=== PATIENT | male | born 1990 | race Caucasian/White ===

== ENCOUNTER 2019-12-15 14:33 | Emergency (ER) | payer OTHER, SELFPAY ==
[2019-12-15 14:42] VITALS: BP 143/68; PULSE 60; RESP 14; TEMP 36.8; O2SAT 99; BMI 23.6
[2019-12-15 15:09] VITALS: BP 135/73
[2019-12-15 15:17] LABS: Add Manual Diff / Slide Review NO; Basophils Absolute Auto 100 /uL (0-100); Basophils Percent Auto 0.7 % (0-2); Eosinophils Absolute Auto 100 /uL (0-450); Eosinophils Percent Auto 1.2 % (2-4); Hematocrit 45.7 % (41-53); Hemoglobin 15.5 g/dL (13.5-17.5); Lymphocytes Absolute Auto 2700 /uL (1100-4500); Lymphocytes Percent Auto 22.7 % (25-40); Mean Corpuscular HGB Conc 33.9 % (30-36); Mean Corpuscular Hemoglobin 31.2 PG (26-34); Mean Corpuscular Volume 92.2 fL (80-100); Monocytes Absolute Auto 700 /uL (0-900); Monocytes Percent Auto 5.6 % (3-14); Neutrophils Absolute Auto 8300 /uL (1500-7000); Neutrophils Percent Auto 69.8 % (50-75); Platelet Count 274 X10^3/uL (150-400); Red Blood Cell Count 4.96 X10^6/uL (4.5-5.9); Red Cell Distribution Width 13.3 % (11.6-14.8); White Blood Cell Count 11.9 X10^3/uL (4.5-11.0)
--- NOTE | 2019-12-15 15:17 | DI.RAD.S_ITS ---
PROCEDURE: XR CHEST 2V INDICATIONS: luq abdominal and lower chest pain TECHNIQUE: 2 views of the chest were acquired. COMPARISON: None. FINDINGS: Surgical changes and devices: None. Lungs and pleura: Lungs are clear. No pleural effusions or pneumothorax. Mediastinum: Mediastinal contours are normal. Heart size is normal. Bones and chest wall: No suspicious bony abnormalities. Soft tissues appear unremarkable. IMPRESSION: No acute process. Dictated by: Fili Gotti M.D. on 12/15/2019 at 14:28 Approved by: Fili Gotti M.D. on 12/15/2019 at 14:28
--- NOTE | 2019-12-15 15:19 | DI.CT.S_ITS ---
PROCEDURE: CT ABDOMEN PELVIS WO CON INDICATIONS: LUQ and flank pain r/o pancreatitis, kidney stone TECHNIQUE: Noncontrast 5 mm thick sections acquired from the diaphragms to the symphysis. 5 mm coronal and sagittal reformats were then performed. For radiation dose reduction, the following was used: automated exposure control, adjustment of mA and/or kV according to patient size. COMPARISON: None. FINDINGS: Image quality: Excellent. ABDOMEN: Lung bases: Lung bases are clear. Heart size is normal. Solid organs: Liver is normal in size. Gallbladder is within normal limits . Pancreas is normal in contours. Spleen is normal in size. No adrenal nodules. Kidneys are normal in size, without hydronephrosis or nephrolithiasis. Peritoneum and bowel: Unenhanced bowel loops demonstrate normal wall thickness and caliber. No free fluid or air. Normal appendix. Nodes and vessels: No retroperitoneal or mesenteric adenopathy by size criteria. Aorta and inferior vena cava are normal in caliber. Miscellaneous: No ventral hernias. PELVIS: Genitourinary: Bladder wall thickness is normal. Miscellaneous: No inguinal hernias or adenopathy. Bones: No suspicious bony lesions. No vertebral body compression fractures. IMPRESSION: 1. No evidence of urinary tract calcification, nor obstruction. 2. Normal appendix. Dictated by: Fili Gotti M.D. on 12/15/2019 at 14:32 Approved by: Fili Gotti M.D. on 12/15/2019 at 14:33
--- NOTE | 2019-12-15 15:21 | ED_ITS ---
HPI - Abdominal Pain General Chief Complaint: Abdominal Pain Stated Complaint: Pressure lt rib, chills Time Seen by Provider: 12/15/19 15:02 Source: patient Mode of arrival: Ambulatory Limitations: no limitations History of Present Illness HPI narrative: CC: Left upper quadrant abdominal pressure HPI: Patient is a 29-year-old male comes into the emergency department complaining that he has been experiencing pressure in his left upper abdomen which radiates into his chest and side. He describes the discomfort as a pressure. He denies that it radiates to his back and has no more back pain than usual. He has had some mild left flank discomfort. He denies any hematuria urinary frequency or urgency kidney stones or kidney infection. He denies any fall or injury to his abdomen back chest or flank. 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 He den ies that he has ever had an ulcer significant indigestion heartburn or pancreatitis. He admits to history of hypertension but denies diabetes mellitus or asthma. He denies a history of hepatitis, TB, HIV, or any exposure to Covid. He scores his discomfort 3 to 4/10 in intensity and states that it is a dull achy pressure. He has had mild shortness of breath and an intermittent unproductive cough. Been nauseous but has had no vomiting diarrhea with normal bowel movements and no melena or hematochezia. He has had no urinary frequency urgency or hematuria. 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 He smokes cigarettes and drinks 4-6 beers per day and smokes mar ijuana. Related Data Previous Rx's Medication Instructions Recorded pantoprazole [Protonix] 40 mg PO DAILY #20 tab 12/15/19 Allergies Allergy/AdvReac Type Severity Reaction Status Date / Time Penicillins Allergy Verified 12/15/19 14:57 Sulfa (Sulfonamide Allergy Verified 12/15/19 14:57 Antibiotics) Review of Systems Review of Systems Narrative: Review of systems are all negative except for those mentioned in the history of present illness. Patient History Social History Smoking Status: Current every day smoker Smoking Status: Current every day smoker alcohol intake frequency: 3 or more drinks per day Alcohol type: beer and wine Exam Narrative Exam Narrative: PHYSICAL EXAM: CONSTITUTIONAL: Awake, Alert, Oriented, Coherent, Cooperative in NAD. Does not appear toxic or ill. The patient appears to be very stoic and is denying any significant discomfort. HEAD: AT/NC EENT: PERRL, FROM of eyes, no discharge, no nystagmus, no icterus appreciated. EARS:No drainage from the ears, Tympanic membranes intact bilaterally, clear EAC NOSE:No epistaxis or nasal drainage MOUTH:Oral mucosa is moist and pink, . NECK: Supple, no obvious JVD, Trachea is midline without stridor, no palpable LN. SPINE: Palpationof the cervical, Thoracic, Lumbar or Sacral spine reveals no gross deformity or tenderness. +/-mild left costovertebral angle tenderness THORAX: No deformity, retractions, chest wall tenderness. LUNGS: Clear, symmetrical breath sounds without respiratory distress. HEART: Normal heart tones, regular rhythm and rate without murmur. ABDOMEN: The patient's abdomen is soft there is mild tenderness in the left upper quadrant without any significant guarding or rebound. There is no palpable organomegaly or mass noted. Bowel sounds are present. EXTREMITIES: No edema, deformity, calf tenderness. SKIN: No rash, bruising, petechiae or purpura. NEURO: Awake, alert, oriented, conversive, cranial nerves II-XII are symmetrical , moves all 4 extremities and is ambulatory. Initial Vital Signs Initial Vital Signs: Vital Signs Temperature 98.3 F 12/15/19 14:42 Pulse Rate 60 12/15/19 14:42 Respiratory Rate 14 12/15/19 14:42 Blood Pressure 143/68 H 12/15/19 14:42 Pulse Oximetry 99 12/15/19 14:42 Course Course Course Narrative: 1638: The patient's CT scan of the abdomen revealed MPRESSION: 1. No evidence of urinary tract calcification, nor obstruction. 2. Normal appendix. CXR revealed:IMPRESSION: No acute process. The patient's laboratory chemistries as noted. Orders Ordered: Discontinued Medications Sodium Chloride (Normal Saline 0.9%) 1,000 mls @ 1,000 mls/hr IV BOLUS ONE Stop: 12/15/19 16:16 Last Infusion: 12/15/19 16:53 Dose: 0 mls/hr Documented by: Admin: 12/15/19 15:36 Dose: 1,000 mls/hr Documented by: TYRA Ketorolac Tromethamine (Toradol) 30 mg IV NOW ONE Stop: 12/15/19 15:18 Last Admin: 12/15/19 15:36 Dose: 30 mg Documented by: TYRA Ondansetron HCl (Zofran) 4 mg IV NOW ONE Stop: 12/15/19 15:18 Last Admin: 12/15/19 15:36 Dose: 4 mg Documented by: TYRA Vital Signs Vital signs: Vital Signs - 8 hr 12/15/19 14:42 12/15/19 15:09 Temperature 98.3 F Pulse Rate 60 Respiratory Rate 14 Blood Pressure 143/68 H 135/73 Pulse Oximetry 99 MDM - Abdominal Pain Medical Records Attestation: I reviewed the patient's medical records. Lab Data Attestation: I reviewed the patient's lab results. Result diagrams: 12/15/19 15:09 12/15/19 15:09 Labs: Lab Results 12/15/19 12/15/19 12/15/19 Range/Units 15:09 15:09 15:09 WBC 11.9 H (4.5-11.0) X10^3/uL RBC 4.96 (4.5-5.9) X10^6/uL Hgb 15.5 (13.5-17.5) g/dL Hct 45.7 (41-53) % MCV 92.2 (80-100) fL MCH 31.2 (26-34) PG MCHC 33.9 (30-36) % RDW 13.3 (11.6-14.8) % Plt Count 274 (150-400) X10^3/uL Neut % (Auto) 69.8 (50-75) % Lymph % (Auto) 22.7 L (25-40) % [place] % (Auto) 5.6 (3-14) % Eos % (Auto) 1.2 L (2-4) % Baso % (Auto) 0.7 (0-2) % Neut # (Auto) 8300 H (6257-1928) /uL Lymph # (Auto) 2700 (5065-2543) /uL [place] # (Auto) 700 (0-900) /uL Eos # (Auto) 100 (0-450) /uL Baso # (Auto) 100 (0-100) /uL PT 12.3 (10.1-12.7) SECONDS INR 1.1 (0.9-1.3) APTT 29 (26.4-36.2) SECONDS Sodium 138 (137-145) mmol/L Potassium 4.3 (3.4-5.1) mmol/L Chloride 104 (98-107) mmol/L Carbon Dioxide 26 (22-32) mmol/L BUN 17 (9-20) mg/dL Creatinine 0.97 (0.66-1.25) mg/dL Estimated GFR > 60.0 (>60) mL/min BUN/Creatinine Ratio 17.5 (6-22) Glucose 105 H (70-100) mg/dL Calcium 9.7 (8.4-10.2) mg/dL Total Bilirubin 0.9 (0.2-1.3) mg/dL AST 35 (17-59) IU/L ALT 25 (<50) IU/L Alkaline Phosphatase 53 (38-126) U/L Total Creatine Kinase (55-170) U/L CK-MB (CK-2) (<2.37) ng/mL CK-MB (CK-2) Rel Index (1.5-5.0) % Troponin I (0.01-0.034) ng/mL Total Protein 7.9 (6.3-8.2) g/dL Albumin 4.8 (3.5-5.0) g/dL Globulin 3.1 (1.7-4.1) g/dL Albumin/Globulin Ratio 1.5 (1.0-2.8) Lipase 50 (23-300) U/L 07/25/20 Range/Units 15:09 WBC (4.5-11.0) X10^3/uL RBC (4.5-5.9) X10^6/uL Hgb (13.5-17.5) g/dL Hct (41-53) % MCV (80-100) fL MCH (26-34) PG MCHC (30-36) % RDW (11.6-14.8) % Plt Count (150-400) X10^3/uL Neut % (Auto) (50-75) % Lymph % (Auto) (25-40) % [place] % (Auto) (3-14) % Eos % (Auto) (2-4) % Baso % (Auto) (0-2) % Neut # (Auto) (9795-8685) /uL Lymph # (Auto) (7549-6641) /uL [place] # (Auto) (0-900) /uL Eos # (Auto) (0-450) /uL Baso # (Auto) (0-100) /uL PT (10.1-12.7) SECONDS INR (0.9-1.3) APTT (26.4-36.2) SECONDS Sodium (137-145) mmol/L Potassium (3.4-5.1) mmol/L Chloride (98-107) mmol/L Carbon Dioxide (22-32) mmol/L BUN (9-20) mg/dL Creatinine (0.66-1.25) mg/dL Estimated GFR (>60) mL/min BUN/Creatinine Ratio (6-22) Glucose (70-100) mg/dL Calcium (8.4-10.2) mg/dL Total Bilirubin (0.2-1.3) mg/dL AST (17-59) IU/L ALT (<50) IU/L Alkaline Phosphatase (38-126) U/L Total Creatine Kinase 135 (55-170) U/L CK-MB (CK-2) 0.43 (<2.37) ng/mL CK-MB (CK-2) Rel Index 0.3 L (1.5-5.0) % Troponin I < 0.012 (0.01-0.034) ng/mL Total Protein (6.3-8.2) g/dL Albumin (3.5-5.0) g/dL Globulin (1.7-4.1) g/dL Albumin/Globulin Ratio (1.0-2.8) Lipase (23-300) U/L Point of care testing: Urine Dip Bedside Urine Glucose Negative Bedside Urine Bilirubin + 1 Bedside Urine Ketone +/- 5 Urine Specific [place] 1.025 Bedside Urine Occult Blood - Negative Bedside Urine pH 6.0 Bedside Urine Protein +/- 15 Bedside Urine Urobilinogen - Negative Bedside Urine Nitrite - Negative Bedside Urine Leukocytes - Negative Esterase ECG Data Attestation: I personally reviewed and interpreted this ECG as follows: Interpretation: The patient's EKG reveals a sinus bradycardia with a ventricular rate of 52 intervals are normal QTC is normal at 372 milliseconds axis is borderline right axis the patient has inverted T-waves in leads V1 and V2 and aVL there are no other acute diagnostic ST segment changes noted. l. EKG has left ventricular hypertrophy by voltage. Discharge Plan Departure Patient Disposition: Home Clinical Impression: Abdominal pain, LUQ Gastritis Qualifiers: Gastritis type: unspecified gastritis Chronicity: unspecified Gastritis bleeding: without bleeding Qualified Code(s): K29.70 - Gastritis, unspecified, without bleeding Discharge Date/Time: 12/15/19 16:58 Instructions: DI for Gastritis, DI for Abdominal Pain-Adult Activity Restrictions/Additional Instructions: 1. Follow-up in be re-evaluated by your primary care physician within 48-[address] scan of the abdomen was grossly negative for any acute pathology kidney stones. 3. Their stomach is located in the left area that you are having your discomfort as well as your pancreas. Alcohol can irritate both. Alcohol irritation of th e stomach can be variable and is usually called gastritis. You have been prescribed Protonix 40 mg that she take for the next 20 days. 4. If you develop worsening pain or discomfort in the abdomen or your side, worsening chest pain worsening shortness of breath difficulty in breathing you need to return to the emergency department. Prescriptions: New pantoprazole [Protonix] 40 mg tablet,delayed release (DR/EC) 40 mg PO DAILY Qty: 20 RF: 0
[2019-12-15 15:30] LABS: INR 1.1 (0.9-1.3); Prothrombin Time 12.3 SECONDS (10.1-12.7)
[2019-12-15 15:32] LABS: PTT Partial Thromboplastin Tim 29 SECONDS (26.4-36.2)
[2019-12-15] MEDS: ONDANSETRON 4 MG/2 ML INJ IV (15:36)
[2019-12-15] MEDS: KETOROLAC 60 MG/2 ML VIAL 30 MG IV (15:36)
[2019-12-15] MEDS: SODIUM CHLORIDE 0.9% 1,000 ML 1000 ML IV (15:36)
[2019-12-15 15:42] LABS: Creatine Kinase 135 U/L (55-170)
[2019-12-15 15:55] LABS: Troponin I < 0.012 ng/mL (0.01-0.034)
[2019-12-15 15:58] LABS: CKMB % Relative Index 0.3 % (1.5-5.0); Creatine Kinase MB 0.43 ng/mL (<2.37)
[2019-12-15 16:34] LABS: Alanine Aminotransferase 25 IU/L (<50); Albumin 4.8 g/dL (3.5-5.0); Albumin Globulin Ratio 1.5 (1.0-2.8); Alkaline Phosphatase 53 U/L (38-126); Aspartate Aminotransferase 35 IU/L (17-59); BUN Creatinine Ratio 17.5 (6-22); Bilirubin Total 0.9 mg/dL (0.2-1.3); Blood Urea Nitrogen 17 mg/dL (9-20); Calcium 9.7 mg/dL (8.4-10.2); Carbon Dioxide 26 mmol/L (22-32); Chloride 104 mmol/L (98-107); Estimated Glomerular Filt Rate > 60.0 mL/min (>60); Globulin 3.1 g/dL (1.7-4.1); Glucose 105 mg/dL (70-100); HEMOLYSIS 31 (0-50); Lipase 50 U/L (23-300); Potassium 4.3 mmol/L (3.4-5.1); Sodium 138 mmol/L (137-145); Total Protein 7.9 g/dL (6.3-8.2)
[2019-12-15 16:49] VITALS: BP 130/68; PULSE 64; RESP 13; O2SAT 100
[2019-12-15 16:56] VITALS: BP 131/57; PULSE 55; O2SAT 98
== END 2019-12-15 16:58 | disposition home or self-care (01) ==
PROVIDERS: Emergency Provider Emergency Medicine
DX: K29.70 Gastritis, unspecified, without bleeding (principal); R10.12 Left upper quadrant pain; I10 Essential (primary) hypertension; R07.9 Chest pain, unspecified
CPT/HCPCS: 36415; 71046; 74176; 80053; 81003; 82550; 82553; 83690; 84484; 85025; 85610; 85730; 93005; 96361; 96374; 96375; 99284; J1885; J2405